=== PATIENT | female | born 1985 | race Caucasian/White ===

== ENCOUNTER 2019-09-20 13:46 | Outpatient (CLI) | payer BC ==
[~2019-09-20] VITALS: Ht 170 cm; Wt 106.8 kg
[~2019-09-20 13:46] MED LIST: BUDE10.2 IH; CETI10TA21 PO; CHOL500061 PO; CITA10TA12 PO; CITA20TA9 PO; FERR-84 PO; MAGN500C15 PO; MELA5CAP PO; MONT10TA26 PO; PANT40TA3 PO; RT-ALBUINH IH; TIOT4MIS2 IH
== END 2019-09-20 14:06 | disposition home or self-care (01) ==
LOC: PREOP 13:46
PROVIDERS: ATTEND Internal Medicine
DX: Z01.818 Encounter for other preprocedural examination (principal)

== ENCOUNTER 2019-09-21 09:34 | Day surgery (SDC) | payer BC ==
--- NOTE | 2019-09-20 06:46 | HISTORY AND PHYSICAL ---
DATE OF SERVICE: EGD HISTORY AND PHYSICAL DATE OF ADMISSION: 09/21/2019. HISTORY OF PRESENT ILLNESS: The patient is a 33-year-old white female seen in the office on the for followup of asthma, possibly allergic in etiology. She had initially seen Dr. Briscoe last month. They had planned on doing an allergy testing as she does have symptoms compatible with seasonal allergies. She was taken off of her antihistamine and she developed acute urticaria. She denied that has been a problem for her in the past. They were not able to do skin testing due to the fact that she required antihistamine therapy for her urticaria, was reinitiated, and she has had no further symptoms. RAST testing was performed and she was told verbally that there was no evidence for allergies. She did see a centrifugal supervisor where her IgE level was done, which was low normal at 11. She had no eosinophils on CBC evaluation, which revealed mild anemia with a hemoglobin of 12, iron studies were compatible with mild iron deficiency. The patient was told she was felt to have asthma. A pulmonary function testing was done, reportedly mildly impaired with some reversibility. She was to continue Symbicort 160/4.5 two puffs b.i.d. and ProAir for which she has done relatively well on. She was switched from Guillermina to Zyrtec 10 mg daily and takes Famotidine 20 mg b.i.d. Despite this, she is still having indigestion symptoms with some intermittent dysphagia to solids. She denies choking, does have intermittent cough alleviated by her inhalers. She denies any problems with diarrhea or bowel habit changes, noted no melena or bright red blood per rectum and no reported change in weight. PHYSICAL EXAMINATION: GENERAL: Revealed an overweight white female in no acute distress. VITAL SIGNS: Weight at 233.8 pounds, BMI 34, blood pressure 120/80, heart rate is 78 and regular. HEENT: Unremarkable. Mallampati 2 pharyngeal configuration. CHEST: Clear. CARDIOVASCULAR: Regular rate and rhythm without murmur, S3 or S4. ABDOMEN: Soft, supple without mass, organomegaly or tenderness. EXTREMITIES: Reveal no cyanosis, clubbing or edema. ASSESSMENT AND PLAN: For further investigation of mild iron deficiency anemia with symptoms compatible with gastroesophageal reflux disease. The patient is being set up for EGD on the 09/21/2019. The procedure was discussed with the patient. We will also plan on doing the duodenal biopsy to rule out sprue as the patient reports periods are not heavy, typically health actuary than average lasting 3 days. Further recommendations pending EGD evaluation. Job ID: [id number] DocumentID: [id number] Dictated Date: 09/18/2019 11:20:20 Reading Efficiency Course Director Date: 09/18/2019 12:01:29 Dictated By: GIUSEPPE SZYMANSKI MD
[~2019-09-21] VITALS: Ht 170 cm; Wt 106.8 kg
[2019-09-21] MEDS ORDERED: D5 LR IV SOLUTION 1,000 ML IV STA (09:42)
[2019-09-21] MEDS ORDERED: D5 LR IV SOLUTION 1,000 ML IV ONE (09:44)
[2019-09-21] MEDS ORDERED: LIDOCAINE JELLY 2% 6 ML SYRINGE MM PRN (09:45)
[2019-09-21] MEDS ORDERED: HURRICAINE EXT TUBE (BENZOCAINE) XX PRN (09:45)
[2019-09-21] MEDS ORDERED: fentaNYL INJECTION 100 MCG/2 ML AMP IVP ONE (09:45)
[2019-09-21] MEDS ORDERED: MIDAZOLAM 5 MG/5 ML (VERSED) VIAL IV PRN (09:45)
[2019-09-21 09:50] VITALS: BP 129/76
[2019-09-21] MEDS ORDERED: LIDOCAINE JELLY 2% 6 ML SYRINGE ONE (10:15)
[2019-09-21] MEDS ORDERED: proPOfol 200 MG/20 ML (DIPRIVAN) VIAL IV ONE (10:48)
[2019-09-21] MEDS ORDERED: MIDAZOLAM 2 MG/2 ML (VERSED) VIAL ONE (10:48)
[2019-09-21 11:15] VITALS: BP 112/71
[2019-09-21] MEDS ORDERED: HURRICAINE EXT TUBE (BENZOCAINE) ONE (11:18)
[2019-09-21 11:20] VITALS: BP 115/72
[2019-09-21 11:25] VITALS: BP 115/75
--- NOTE | 2019-09-21 11:28 | Anesthesia-General Post-Op ---
MAC Patient Condition Mental Status/LOC: Same as Preop Cardiovascular: Satisfactory Nausea/Vomiting: Absent Respiratory: Satisfactory Pain: Controlled Complications: Absent Post Op Complications Complications None Follow Up Care/Instructions Patient Instructions None needed. Anesthesiology Discharge Order Discharge Order Patient is doing well, no complaints, stable vital signs, no apparent adverse anesthesia problems. No complications reported per nursing. ALEX SMITH CRNA Sep 21, 2019 11:28
--- NOTE | 2019-09-21 11:41 | Pre-Op Note & Conscious Sedat ---
Pre-Operative Progress Note H&P Reviewed The H&P was reviewed, patient examined and no changes noted. Date H&P Reviewed: Sep 21, 2019 Time H&P Reviewed: 10:30 Conscious Sedation Pre-Proced ASA Score 2 For ASA 3 and 4: Consider anesthesia and medical clearance. Also, for patients with a history of failed moderate sedation consider anesthesia. Airway Lungs Heart ASA score ASA 1: a normal healthy patient ASA 2: a patient with a mild systemic disease (mid diabetes, controlled hypertension, obesity ASA 3: a patient with a severe systemic disease that limits activity (angina, COPD, prior Myocardial infarction) ASA 4: a patient with an incapacitating disease that is a constant threat to life (CHF, renal failure) ASA 5: a moribund patient not expected to survive 24 hrs. (ruptured aneurysm) ASA 6: a declared brain- patient whose organs are being harvested. For emergent operations, add the letter E after the classification Mallampati Classification Grade 2 Sedation Plan Analgesia, Amnesia, Plan communicated to team members, Discussed options with patient/fam, Discussed risks with patient/fam The patient is an appropriate candidate to undergo the planned procedure, sedation, and anesthesia. The patient immediately re-assessed prior to indication. GIUSEPPE SZYMANSKI MD Sep 21, 2019 11:41
[2019-09-21 12:00] VITALS: BP 128/94
[2019-09-21 12:11] VITALS: BP 128/94
--- NOTE | 2019-09-21 17:00 | OPERATIVE REPORT ---
DATE OF SERVICE: EGD SUMMARY INDICATION FOR THE PROCEDURE: Reflux with dysphagia. DESCRIPTION OF PROCEDURE: The patient was placed in the left lateral decubitus position. The endoscope was inserted in the oral cavity and under direct visualization, esophagus was intubated. The endoscope was passed down the esophagus through the stomach and second portion of the duodenum. Careful inspection was made as the endoscope was withdrawn. The patient tolerated the procedure well. This was due to the fact that Diprivan was utilized. She was extremely anxious about the procedure making Diprivan the safest modes of anesthesia for this patient. FINDINGS: There was no evidence for erosive esophagitis. No esophageal furrowing was noted. No rings, webs, strictures, Shah's change or evidence for erosive esophagitis was noted. She does have history of seasonal allergies, likely allergic asthma and considering dysphagia, biopsies from the distal and proximal esophagus were obtained and submitted for eosinophil evaluation. A small sliding hiatal hernia was present. The cardia, fundus, antrum, pylorus, duodenal bulb and second portion of duodenum were unremarkable. Normal villous appearing architecture was present. ASSESSMENT: There was no evidence for erosive esophagitis on today's evaluation. The patient does have a small sliding hiatal hernia. We discussed the fact that her proton pump inhibitor is preventing erosive esophagitis as she is still having reflux symptoms. We discussed the importance of not eating or drinking anything 4 hours before midnight. In regards to an aid for weight loss, we did discuss time restricted feeding for her considering a 6- or 8-hour window of time beginning at 8 a.m. or when she normally wakes up, which would also be beneficial for ensuring that her stomach is empty at bedtime. She does report waking up at night with food in the back of her mouth coughing and choking occasionally. A wedge also was recommended. She does have asthma, for which reflux may be exacerbating and had cut back on her physical activity. Advised that she take 2 puffs of Ventolin and go back to the elliptical machine that she has utilized in the past to aid in weight loss and overall health as well. Lastly, it is possible that citalopram she takes for anxiety is stimulating appetite and we did discuss other potential options for anxiety. She is to make a followup appointment to discuss this in more detail and may consider tapering off of citalopram and substituting venlafaxine ER. Job ID: [id number] DocumentID: [id number] Dictated Date: 09/21/2019 12:14:03 Control Panel Operator Crude Unit Date: 09/21/2019 16:59:09 Dictated By: GIUSEPPE SZYMANSKI MD [facility]
--- OUTSIDE RECORDS SUMMARY | 2019-09-23 02:41 | XMS REPORT | Continuity of Care Document ---
Author Organization Unknown Address Unknown Phone Unavailable Allergies Active Description Code Type Severity Reaction Onset Reported/Identified Relationship to Patient Clinical Status Yes No Known Drug Allergies [id number] Drug Allergy Unknown N/A 09/20/2019 Medications There is no data. Problems There is no data. Procedures There is no data. Results There is no data. Encounters ACCT No. Visit Date/Time Discharge Status Pt. Type Provider Facility Loc./Unit Complaint [id number] 09/21/2019 09:34:00 020 12:05:00 DIS Outpatient GIUSEPPE SZYMANSKI MD [facility] ENDO GERD [id number] 09/20/2019 13:46:00 020 14:06:00 DIS Outpatient GIUSEPPE SZYMANSKI MD [facility] PREOP EGD
== END 2019-09-21 12:05 | disposition home or self-care (01) ==
LOC: ENDO 09:34
PROVIDERS: ATTEND Internal Medicine
DX: K44.9 Diaphragmatic hernia without obstruction or gangrene (principal); K21.9 Gastro-esophageal reflux disease without esophagitis; D50.9 Iron deficiency anemia, unspecified; J45.909 Unspecified asthma, uncomplicated; M54.9 Dorsalgia, unspecified; G89.29 Other chronic pain; E66.9 Obesity, unspecified; Z79.899 Other long term (current) drug therapy; Z68.37 Body mass index [BMI] 37.0-37.9, adult